=== PATIENT | female | born 1945 | race Caucasian/White ===

== ENCOUNTER 2019-01-04 16:29 | Emergency (ER) | payer MEDICARE, OTHER ==
[~2019-01-04] VITALS: Ht 165.1 cm; Wt 67.3 kg
[~2019-01-04 16:29] MED LIST: ASPI-817 PO; LEVO500T10 PO; LEVO88TA3 PO; PANT40TA4 PO; SUCR1TAB35 PO
[2019-01-04 16:49] VITALS: BP 119/70; PULSE 82; RESP 18; Ht 165.1 cm; Wt 67.3 kg
== END 2019-01-04 17:53 | disposition home or self-care (01) ==
LOC: FTE 16:29
DX: S80.862A Insect bite (nonvenomous), left lower leg, initial encounter (principal); S80.861A Insect bite (nonvenomous), right lower leg, initial encounter; W57.XXXA Bitten or stung by nonvenomous insect and other nonvenomous arthropods, initial encounter; Y92.9 Unspecified place or not applicable
CPT/HCPCS: 99282